=== PATIENT | male | born 1965 | race Hispanic/Latino ===

== ENCOUNTER 2024-04-14 10:37 | Emergency (ER) | payer SELFPAY ==
[2024-04-14] MEDS ORDERED: Pantoprazole 40 MG VIAL ONE (10:49)
[2024-04-14] MEDS ORDERED: Octreotide Acetate 100 MCG/ML VIAL ONE (10:53)
[2024-04-14 11:33] LABS: PTT 25.6 sec (22.0-33.0)
[2024-04-14 11:37] LABS: #Basophils 0.03 10x3/uL (0.0-0.2); #Eosinophils 0.04 10x3/uL (0.0-0.5); #Monocytes 0.16 10x3/uL (0.0-1.1); #Neutrophils 5.79 10x3/uL (1.5-8.4); %Basophils 0.5 % (0.0-2.0); %Eosinophils 0.6 % (0.0-6.0); %Lymphocytes 8.1 % (18.0-47.0); %Monocytes 2.4 % (0.0-10.0); %Neutrophils 88.1 % (40.0-75.0); Hematocrit 31.1 % (38.8-50.0); Hemoglobin 10.9 g/dL (13.5-17.5); Mean Corpuscular Hemoglobin 34.3 pg (27.0-33.0); Mean Corpuscular Volume 97.8 fL (81.2-95.1); Mean Platelet Volume 11.3 fL (7.4-10.4); Platelet Count 80 10x3/uL (150-450); RBC Distribution Width 14.4 % (11.5-14.5); Red Blood Cell (RBC) Count 3.18 10x6/uL (4.32-5.72); White Blood Cell (WBC) Count 6.6 10x3/uL (3.5-10.5)
[2024-04-14 11:42] LABS: ALT (SGPT) 50 U/L (8-55); AST (SGOT) 69 U/L (5-34); Albumin 1.9 g/dL (3.5-5.0); Alkaline Phosphatase 248 U/L (40-110); Anion Gap 12 mmol/L (10-20); BUN (Urea Nitrogen) 39 mg/dL (8.4-25.7); Bilirubin, Total 0.5 mg/dL (0.2-1.2); Calc. Creatinine Clearance 0 mL/min (70-130); Calcium 8.7 mg/dL (7.8-10.44); Carbon Dioxide 19 mmol/L (22-29); Chloride 119 mmol/L (98-107); Estimated GFR 100; Globulin 4.6 g/dL (2.4-3.5); Glucose 102 mg/dL (70-105); Potassium 4.6 mmol/L (3.5-5.1); Protein, Total 6.5 g/dL (6.0-8.3); Sodium 145 mmol/L (136-145)
[2024-04-14 11:51] LABS: Giant Platelets SLIGHT HPF (0-5); Platelet Adequacy Comment Appears Decreased
[2024-04-14] MEDS ORDERED: Iopamidol 300 61% 100 ML VIAL FS ONE (12:12)
== END 2024-04-14 15:27 | disposition home or self-care (01) ==
LOC: CSHERS 10:37
DX: D69.6 Thrombocytopenia, unspecified (principal); R58 Hemorrhage, not elsewhere classified; I10 Essential (primary) hypertension; Z79.899 Other long term (current) drug therapy
CPT/HCPCS: 36415; 71045; 74177; 80053; 85025; 85610; 85730; 86850; 86900; 86901; 96374; J2354; J2470; Q9967

== ENCOUNTER 2024-04-27 08:24 | Emergency (ER) | payer SELFPAY | END 2024-04-27 11:05 | disposition home or self-care (01) | LOC: CSHERS 08:24 | DX: K94.23 Gastrostomy malfunction (principal); I10 Essential (primary) hypertension | CPT/HCPCS: 43762; 74018 ==

== ENCOUNTER 2024-05-04 13:59 | Inpatient (IN) | payer BC, SELFPAY ==
[2024-05-04] MEDS ORDERED: Iopamidol 300 61% 100 ML VIAL FS ONE (14:42)
[2024-05-04] MEDS ORDERED: Acetaminophen 325 MG Suppository ONE (15:12)
[2024-05-04] MEDS ORDERED: Acetaminophen 650 MG Suppository ONE (15:12)
[2024-05-04] MEDS ORDERED: Piperacillin/Tazobactam 4.5 GM VIAL ONE (15:13)
[2024-05-04 15:46] LABS: #Basophils Less than 0.03 10x3/uL (0.0-0.2); #Eosinophils 0.26 10x3/uL (0.0-0.5); #Monocytes 0.73 10x3/uL (0.0-1.1); #Neutrophils 5.03 10x3/uL (1.5-8.4); %Basophils 0.3 % (0.0-2.0); %Eosinophils 3.6 % (0.0-6.0); %Monocytes 10.2 % (0.0-10.0); %Neutrophils 70.5 % (40.0-75.0); Hematocrit 24.6 % (38.8-50.0); Mean Corpuscular HGB CONC 32.5 g/dL (32.0-36.0); Mean Corpuscular Hemoglobin 31.9 pg (27.0-33.0); Mean Platelet Volume 9.9 fL (7.4-10.4); RBC Distribution Width 13.7 % (11.5-14.5); Red Blood Cell (RBC) Count 2.51 10x6/uL (4.32-5.72); White Blood Cell (WBC) Count 7.1 10x3/uL (3.5-10.5)
[2024-05-04 15:47] LABS: Platelet Count 111 10x3/uL (150-450)
[2024-05-04 15:50] LABS: ALT (SGPT) 44 U/L (8-55); AST (SGOT) 65 U/L (5-34); Albumin 1.2 g/dL (3.5-5.0); Alkaline Phosphatase 266 U/L (40-110); Anion Gap 9 mmol/L (10-20); BUN (Urea Nitrogen) 49 mg/dL (8.4-25.7); Bilirubin, Total 0.5 mg/dL (0.2-1.2); Calc. Creatinine Clearance 0 mL/min (70-130); Calcium 7.7 mg/dL (7.8-10.44); Carbon Dioxide 20 mmol/L (22-29); Chloride 114 mmol/L (98-107); Estimated GFR 58; Globulin 4.4 g/dL (2.4-3.5); Glucose 90 mg/dL (70-105); Lipase 62 U/L (8-78); Magnesium 2.2 mg/dL (1.6-2.6); Potassium 4.9 mmol/L (3.5-5.1); Protein, Total 5.6 g/dL (6.0-8.3); Sodium 138 mmol/L (136-145)
[2024-05-04 17:19] LABS: Bilirubin Neg (Negative); Blood, Urine 250 (Negative); Clarity Cloudy (Clear); Glucose, Urine (Dipstick) Normal (Negative); Ketone, Urine Negative (Negative); Leukocyte 25 (Negative); Nitrite Negative (Negative); Protein, Urine (Dipstick) 500 mg/dl (Neg-Trace); Urobilinogen Normal mg/dL (Less than 2)
[2024-05-04] MEDS ORDERED: Glucagon 1 MG/ML KIT IM PRN (18:09)
[2024-05-04] MEDS ORDERED: Insulin Lispro 100 UNIT/ML 10 ML VIAL SC PRN ×2 (18:09)
[2024-05-04] MEDS ORDERED: Dextrose 5% in Water 1,000 ML IV PRN (18:09)
[2024-05-04] MEDS ORDERED: Ondansetron PF 4 MG/2 ML Vial IVP PRN (18:09)
[2024-05-04] MEDS ORDERED: Dextrose 50% Abboject 50 ML SYRINGE SLOW IVP PRN (18:09)
[2024-05-04] MEDS ORDERED: Ipratropium/Albuterol 3 ML NEB NEB PRN (18:18)
[2024-05-04 18:42] LABS: Prothrombin Time 11.3 sec (9.5-12.1)
[2024-05-04 18:42] LABS: CAUTI Indications for Culture Alt mental st,lethar; RBC/HPF Greater than 50 HPF (0-3); Squamous Epithelial 0-3 HPF (0-3)
[2024-05-04 18:43] LABS: Bacteria/HPF Rare-Few HPF (None Seen); Urine Culture Reflex No No
[2024-05-04] MEDS: Ipratropium/Albuterol 3 ML NEB NEB SCH (20:00)
[2024-05-04] MEDS: VANCOMYCIN 1.25 GM/250 ML BAG 1.25 GM in Premix 1 BAG IVPB SCH (22:49)
[2024-05-04] MEDS: Lactated Ringer's 500 ML IV SCH (23:13)
[2024-05-04 23:19] VITALS: BMI 22.8
[2024-05-04] MEDS: Rifaximin 200 MG TAB PER TUBE SCH (23:51)
[2024-05-04] MEDS: Lactulose 20 GM (30 mL) UDCUP PER TUBE SCH (23:52)
[2024-05-04] MEDS: Chlorhexidine Gluconate 15 ML UDCUP SSP SCH (23:53)
[2024-05-05] MEDS: Ampicillin/Sulbactam 3 GM in Sodium Chloride 0.9% 100 ML IVPB SCH (02:33)
[2024-05-05] MEDS: traMADol HCl 50 MG TAB PER TUBE PRN (03:24)
[2024-05-05] MEDS: Methocarbamol 500 MG TAB PER TUBE PRN (03:25)
[2024-05-05 05:17] LABS: ALT (SGPT) 44 U/L (8-55); AST (SGOT) 62 U/L (5-34); Albumin 1.2 g/dL (3.5-5.0); Alkaline Phosphatase 208 U/L (40-110); Anion Gap 12 mmol/L (10-20); BUN (Urea Nitrogen) 48 mg/dL (8.4-25.7); Bilirubin, Total 0.5 mg/dL (0.2-1.2); Calc. Creatinine Clearance 43 mL/min (70-130); Calcium 8.1 mg/dL (7.8-10.44); Carbon Dioxide 18 mmol/L (22-29); Chloride 114 mmol/L (98-107); Estimated GFR 48; Glucose 130 mg/dL (70-105); Potassium 4.8 mmol/L (3.5-5.1); Protein, Total 6.2 g/dL (6.0-8.3); Sodium 139 mmol/L (136-145)
[2024-05-05 05:54] LABS: Vancomycin, Random 23.7 ug/mL (See Comment)
[2024-05-05 06:22] LABS: #Basophils 0.03 10x3/uL (0.0-0.2); #Eosinophils 0.26 10x3/uL (0.0-0.5); #Monocytes 0.35 10x3/uL (0.0-1.1); #Neutrophils 3.99 10x3/uL (1.5-8.4); %Basophils 0.6 % (0.0-2.0); %Eosinophils 4.9 % (0.0-6.0); %Lymphocytes 12.4 % (18.0-47.0); %Monocytes 6.6 % (0.0-10.0); %Neutrophils 75.1 % (40.0-75.0); Hematocrit 23.9 % (38.8-50.0); Hemoglobin 8.1 g/dL (13.5-17.5); Mean Corpuscular HGB CONC 33.9 g/dL (32.0-36.0); Mean Corpuscular Hemoglobin 33.2 pg (27.0-33.0); Red Blood Cell (RBC) Count 2.44 10x6/uL (4.32-5.72); White Blood Cell (WBC) Count 5.31 10x3/uL (3.5-10.5)
[2024-05-05 06:25] LABS: Platelet Count 101 10x3/uL (150-450)
[2024-05-05 10:14] VITALS: BMI 22.8
[2024-05-05] MEDS: Lansoprazole 3 MG/ML ORAL SUSPENSION PER TUBE SCH (10:17)
[2024-05-05] MEDS: Multivitamin W/ Minerals 1 TAB PER TUBE SCH (10:17)
[2024-05-05] MEDS: Thiamine 100 MG TAB PER TUBE SCH (10:18)
[2024-05-05] MEDS: Folic Acid 1 MG TAB PER TUBE SCH (10:18)
[2024-05-05 12:22] LABS: Iron 35 ug/dL (65-175); Iron Binding Capacity, Total 144 mcg/dL (261-462)
[2024-05-05 12:30] LABS: Ferritin 265.19 ng/mL (22-322)
[2024-05-05] MEDS: FLU (Fluarix Triv) TS24-25(6MOS UP)/PF 45 MCG/0.5 ML Syringe IM ONE (13:26)
[2024-05-05] MEDS: Piperacillin/Tazobactam 3.375 GM in Sodium Chloride 0.9% 100 ML IVPB SCH ×2 (13:34→15:46)
[2024-05-05] MEDS ORDERED: VANCOMYCIN 1.25 GM/250 ML BAG 1.25 GM in Premix 1 BAG IVPB SCH (17:00)
[2024-05-05 17:18] LABS: Vitamin B12 Greater than 2000 pg/mL (211-911)
[2024-05-05] MEDS: LevoFLOXacin 250 mg/D5W 250 MG in Premix 1 BAG IVPB SCH (18:00)
[2024-05-05] MEDS: Vancomycin HCl 750 MG in Sodium Chloride 0.9% 250 ML 250 ML IVPB SCH (22:27)
[2024-05-06 04:51] LABS: #Basophils 0.03 10x3/uL (0.0-0.2); #Eosinophils 0.33 10x3/uL (0.0-0.5); #Monocytes 0.69 10x3/uL (0.0-1.1); #Neutrophils 4.56 10x3/uL (1.5-8.4); %Basophils 0.5 % (0.0-2.0); %Eosinophils 5.1 % (0.0-6.0); %Lymphocytes 12.8 % (18.0-47.0); %Monocytes 10.7 % (0.0-10.0); %Neutrophils 70.4 % (40.0-75.0); Anion Gap 12 mmol/L (10-20); BUN (Urea Nitrogen) 46 mg/dL (8.4-25.7); Calc. Creatinine Clearance 38 mL/min (70-130); Calcium 7.9 mg/dL (7.8-10.44); Carbon Dioxide 18 mmol/L (22-29); Chloride 121 mmol/L (98-107); Estimated GFR 42; Glucose 115 mg/dL (70-105); Hematocrit 24.1 % (38.8-50.0); Hemoglobin 8.1 g/dL (13.5-17.5); Mean Corpuscular HGB CONC 33.6 g/dL (32.0-36.0); Mean Corpuscular Hemoglobin 33.8 pg (27.0-33.0); Mean Corpuscular Volume 100.4 fL (81.2-95.1); Mean Platelet Volume 9.7 fL (7.4-10.4); Potassium 4.5 mmol/L (3.5-5.1); RBC Distribution Width 14.2 % (11.5-14.5); Sodium 146 mmol/L (136-145); White Blood Cell (WBC) Count 6.47 10x3/uL (3.5-10.5)
[2024-05-06 04:52] LABS: Platelet Count 97 10x3/uL (150-450)
[2024-05-06 08:53] LABS: Vancomycin, Random 27.6 ug/mL (See Comment)
[2024-05-06] MEDS: Sodium Chloride 0.45% 1,000 ML IV SCH (09:37)
[2024-05-06] MEDS: Vancomycin HCl 500 MG in Sodium Chloride 0.9% 250 ML 250 ML IVPB SCH (21:29)
[2024-05-07 05:07] LABS: Vancomycin, Random 29.7 ug/mL (See Comment)
[2024-05-07 09:58] LABS: Anion Gap 11 mmol/L (10-20); BUN (Urea Nitrogen) 45 mg/dL (8.4-25.7); Calc. Creatinine Clearance 37 mL/min (70-130); Calcium 7.8 mg/dL (7.8-10.44); Carbon Dioxide 18 mmol/L (22-29); Chloride 123 mmol/L (98-107); Estimated GFR 41; Glucose 90 mg/dL (70-105); Potassium 4.4 mmol/L (3.5-5.1); Sodium 148 mmol/L (136-145)
[2024-05-07] MEDS ORDERED: Lorazepam 1 MG TAB PO PRN (12:22)
[2024-05-07] MEDS: Sodium Bicarbonate 100 MEQ, Admixture Fee 1 EACH in Dextrose 5% in Water 1,000 ML IV SCH (14:16)
[2024-05-07] MEDS: Chlorhexidine Gluconate 15 ML UDCUP SSP SCH (14:17)
[2024-05-07] MEDS: Losartan 50 MG TAB PER TUBE SCH (14:17)
[2024-05-07] MEDS: hydrALAZINE 20 MG/ML VIAL SLOW IVP PRN (17:17)
[2024-05-07] MEDS: traZODone HCl 50 MG TAB PER TUBE SCH (21:00)
[2024-05-08 04:56] LABS: Platelet Count 129 10x3/uL (150-450)
[2024-05-08 04:57] LABS: #Basophils 0.05 10x3/uL (0.0-0.2); #Eosinophils 0.38 10x3/uL (0.0-0.5); #Monocytes 0.71 10x3/uL (0.0-1.1); #Neutrophils 4.61 10x3/uL (1.5-8.4); %Basophils 0.7 % (0.0-2.0); %Eosinophils 5.2 % (0.0-6.0); %Lymphocytes 19.1 % (18.0-47.0); %Monocytes 9.8 % (0.0-10.0); %Neutrophils 63.4 % (40.0-75.0); Anion Gap 11 mmol/L (10-20); BUN (Urea Nitrogen) 44 mg/dL (8.4-25.7); Calc. Creatinine Clearance 35 mL/min (70-130); Calcium 8.1 mg/dL (7.8-10.44); Carbon Dioxide 22 mmol/L (22-29); Chloride 121 mmol/L (98-107); Estimated GFR 38; Glucose 124 mg/dL (70-105); Hematocrit 26.1 % (38.8-50.0); Hemoglobin 8.9 g/dL (13.5-17.5); Mean Corpuscular HGB CONC 34.1 g/dL (32.0-36.0); Mean Corpuscular Hemoglobin 33.2 pg (27.0-33.0); Mean Corpuscular Volume 97.4 fL (81.2-95.1); Mean Platelet Volume 9.1 fL (7.4-10.4); RBC Distribution Width 14.1 % (11.5-14.5); Red Blood Cell (RBC) Count 2.68 10x6/uL (4.32-5.72); Sodium 150 mmol/L (136-145); Vancomycin, Random 20.4 ug/mL (See Comment); White Blood Cell (WBC) Count 7.27 10x3/uL (3.5-10.5)
[2024-05-08] MEDS: Dextrose 5% in Water 1,000 ML IV SCH (08:54)
[2024-05-08] MEDS: Vancomycin HCl 500 MG in Sodium Chloride 0.9% 250 ML 250 ML IVPB SCH (08:59)
[2024-05-08] MEDS: Losartan 25 MG TAB PER TUBE SCH (08:59)
[2024-05-08] MEDS: Acetaminophen 650 MG Suppository PR PRN (10:56)
[2024-05-08] MEDS: Cefepime 1 GM in Sodium Chloride 0.9% 100 ML IVPB SCH (14:20)
[2024-05-08] MEDS: Chlorhexidine Gluconate 15 ML UDCUP SSP SCH (14:21)
[2024-05-08 16:39] LABS: Potassium 3.9 mmol/L (3.5-5.1); Sodium 147 mmol/L (136-145)
[2024-05-09 04:50] LABS: #Basophils Less than 0.03 10x3/uL (0.0-0.2); #Eosinophils 0.35 10x3/uL (0.0-0.5); #Monocytes 0.69 10x3/uL (0.0-1.1); #Neutrophils 3.88 10x3/uL (1.5-8.4); %Basophils 0.3 % (0.0-2.0); %Eosinophils 5.9 % (0.0-6.0); %Lymphocytes 16.1 % (18.0-47.0); %Monocytes 11.6 % (0.0-10.0); %Neutrophils 65.1 % (40.0-75.0); Hematocrit 24.3 % (38.8-50.0); Hemoglobin 7.9 g/dL (13.5-17.5); Mean Corpuscular HGB CONC 32.5 g/dL (32.0-36.0); Mean Corpuscular Hemoglobin 32.6 pg (27.0-33.0); Mean Corpuscular Volume 100.4 fL (81.2-95.1); Mean Platelet Volume 9.9 fL (7.4-10.4); RBC Distribution Width 14.1 % (11.5-14.5); Red Blood Cell (RBC) Count 2.42 10x6/uL (4.32-5.72); White Blood Cell (WBC) Count 5.96 10x3/uL (3.5-10.5)
[2024-05-09 04:52] LABS: Platelet Count 93 10x3/uL (150-450)
[2024-05-09 04:58] LABS: Vancomycin, Random 21.6 ug/mL (See Comment)
[2024-05-09 05:00] LABS: Anion Gap 10 mmol/L (10-20); BUN (Urea Nitrogen) 52 mg/dL (8.4-25.7); Calc. Creatinine Clearance 37 mL/min (70-130); Calcium 7.8 mg/dL (7.8-10.44); Carbon Dioxide 22 mmol/L (22-29); Chloride 119 mmol/L (98-107); Estimated GFR 41; Glucose 105 mg/dL (70-105); Potassium 4.2 mmol/L (3.5-5.1); Sodium 147 mmol/L (136-145)
[2024-05-09] MEDS: Dextrose 5% in Water 1,000 ML IV SCH (09:28)
[2024-05-10 04:57] LABS: Phosphorus 3.3 mg/dL (2.3-4.7)
[2024-05-10 04:58] LABS: Anion Gap 8 mmol/L (10-20); BUN (Urea Nitrogen) 51 mg/dL (8.4-25.7); Calc. Creatinine Clearance 38 mL/min (70-130); Calcium 7.7 mg/dL (7.8-10.44); Carbon Dioxide 21 mmol/L (22-29); Chloride 119 mmol/L (98-107); Estimated GFR 41; Glucose 102 mg/dL (70-105); Magnesium 2.3 mg/dL (1.6-2.6); Potassium 3.9 mmol/L (3.5-5.1); Sodium 144 mmol/L (136-145)
[2024-05-10 05:02] LABS: #Basophils Less than 0.03 10x3/uL (0.0-0.2); #Eosinophils 0.21 10x3/uL (0.0-0.5); #Monocytes 0.54 10x3/uL (0.0-1.1); #Neutrophils 4.14 10x3/uL (1.5-8.4); %Basophils 0.2 % (0.0-2.0); %Eosinophils 3.6 % (0.0-6.0); %Lymphocytes 15.3 % (18.0-47.0); %Monocytes 9.3 % (0.0-10.0); %Neutrophils 70.9 % (40.0-75.0); Hematocrit 22.6 % (38.8-50.0); Hemoglobin 7.3 g/dL (13.5-17.5); Mean Corpuscular HGB CONC 32.3 g/dL (32.0-36.0); Mean Corpuscular Hemoglobin 32.3 pg (27.0-33.0); Mean Platelet Volume 9.3 fL (7.4-10.4); RBC Distribution Width 14.4 % (11.5-14.5); Red Blood Cell (RBC) Count 2.26 10x6/uL (4.32-5.72); White Blood Cell (WBC) Count 5.83 10x3/uL (3.5-10.5)
[2024-05-10 05:03] LABS: Platelet Count 97 10x3/uL (150-450)
[2024-05-10] MEDS: Dextrose 5 %-0.45 % NaCl 1,000 ML IV SCH (09:57)
[2024-05-10] MEDS: Ferrous Sulfate 325 MG TAB PO SCH (09:57)
[2024-05-10] MEDS: Amoxicillin/Potassium Clav 875 MG TAB PO SCH (09:57)
[2024-05-10] MEDS: LevoFLOXacin 500 MG TAB PO SCH (12:38)
[2024-05-10] MEDS ORDERED: Lorazepam 1 MG TAB PER TUBE PRN (19:54)
[2024-05-10] MEDS: Amoxicillin/Potassium Clav 875 MG TAB PER TUBE SCH (21:50)
[2024-05-11 00:24] VITALS: TEMP 98.5
[2024-05-11 04:53] LABS: #Basophils 0.03 10x3/uL (0.0-0.2); #Eosinophils 0.19 10x3/uL (0.0-0.5); #Monocytes 0.44 10x3/uL (0.0-1.1); #Neutrophils 4.34 10x3/uL (1.5-8.4); %Basophils 0.5 % (0.0-2.0); %Eosinophils 3.1 % (0.0-6.0); %Lymphocytes 17.3 % (18.0-47.0); %Monocytes 7.2 % (0.0-10.0); %Neutrophils 71.4 % (40.0-75.0); Hematocrit 21.8 % (38.8-50.0); Hemoglobin 7.2 g/dL (13.5-17.5); Mean Corpuscular Hemoglobin 32.7 pg (27.0-33.0); Mean Corpuscular Volume 99.1 fL (81.2-95.1); Mean Platelet Volume 9.7 fL (7.4-10.4); Platelet Count 92 10x3/uL (150-450); RBC Distribution Width 14.5 % (11.5-14.5); White Blood Cell (WBC) Count 6.08 10x3/uL (3.5-10.5)
[2024-05-11 05:00] LABS: Anion Gap 8 mmol/L (10-20); BUN (Urea Nitrogen) 51 mg/dL (8.4-25.7); Calc. Creatinine Clearance 42 mL/min (70-130); Calcium 7.7 mg/dL (7.8-10.44); Carbon Dioxide 20 mmol/L (22-29); Chloride 119 mmol/L (98-107); Estimated GFR 47; Glucose 110 mg/dL (70-105); Potassium 3.8 mmol/L (3.5-5.1); Sodium 143 mmol/L (136-145)
[2024-05-11] MEDS: LevoFLOXacin 500 MG TAB PER TUBE SCH (06:50)
[2024-05-11 09:11] VITALS: BP 137/63
== END 2024-05-11 16:45 | DRG 193 ==
LOC: CSHERS 13:59 → CSHTELE 17:47
PROVIDERS: ADMIT Internal Medicine; ATTEND Family Medicine
DX: J18.9 Pneumonia, unspecified organism (principal); J96.01 Acute respiratory failure with hypoxia; E46 Unspecified protein-calorie malnutrition; E87.0 Hyperosmolality and hypernatremia; D69.6 Thrombocytopenia, unspecified; K21.9 Gastro-esophageal reflux disease without esophagitis; I10 Essential (primary) hypertension; K70.30 Alcoholic cirrhosis of liver without ascites; F10.90 Alcohol use, unspecified, uncomplicated; K59.00 Constipation, unspecified; D63.8 Anemia in other chronic diseases classified elsewhere; K80.20 Calculus of gallbladder without cholecystitis without obstruction; Z68.22 Body mass index [BMI] 22.0-22.9, adult
CPT/HCPCS: 36415; 36416; 71260; 74177; 80048; 80053; 80202; 81001; 82274; 82565; 82607; 82728; 83540; 83550; 83605; 83690; 83735; 83880; 84100; 84145; 85025; 85610; 86850; 86900; 86901; 87040; 87428; 93005; 94640; 94760; 94762; 97139; J0295; J0360; J0692; J1956; J2543; J3370; J7042; J7050; J7070; J7120; J7620; Q9967